=== PATIENT | female | born 1995 | race Two or more races ===

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

== ENCOUNTER 2017-02-18 05:55 | Emergency (ER) | payer MEDICAID ==
[~2017-02-18] VITALS: Ht 165.1 cm; Wt 57.2 kg
[2017-02-18 06:03] VITALS: BP 123/79
== END 2017-02-18 07:34 | disposition home or self-care (01) ==
LOC: ED 07:19
DX: H66.002 Acute suppurative otitis media without spontaneous rupture of ear drum, left ear (principal); J02.9 Acute pharyngitis, unspecified; J45.909 Unspecified asthma, uncomplicated
CPT/HCPCS: 99283

== ENCOUNTER 2020-09-15 17:47 | Emergency (ER) | payer MEDICAID ==
[~2020-09-15] VITALS: Ht 165.1 cm; Wt 72.3 kg
--- NOTE | 2020-09-15 18:20 | NUR ---
PT BROUGHT BACK FROM TRIAGE WITH CHIEF COMPLAINT OF N/V INTERMITTENT FOR ONE MONTH.
--- NOTE | 2020-09-15 18:46 | NUR ---
REPORT GIVEN TO ELENO MILLIGAN
--- NOTE | 2020-09-15 18:48 | NUR ---
BEDSIDE REPORT RECEIVED FROM JACK MILLIGAN
--- NOTE | 2020-09-15 18:54 | NUR ---
PT AMBULATORY WITH STEADY GAIT TO BATHROOM TO PROVIDE URINE SAMPLE. PT RETURNED TO ROOM, SITTING UPRIGHT ON TANYA MOYER, VSS. PT DENIES ANY ADDITIONAL NEEDS AT THIS TIME. CALL LIGHT AND PERSONAL BELONGINGS WITHIN REACH.
[2020-09-15 18:58] LABS: ALANINE AMINOTRANSFERASE 23 U/L (12-78); ALBUMIN 4.1 g/dL (3.4-5.0); ANION GAP 9 mmol/L (5-15); CALCIUM 9.3 mg/dL (8.5-10.1); CHLORIDE 108 mmol/L (98-107); CREATININE 0.74 mg/dL (0.55-1.02)
[2020-09-15 18:59] LABS: BASOPHILS % (AUTO) 0 % (0-1); EOSINOPHILS % (AUTO) 1 % (1-7); LYMPHOCYTES % (AUTO) 36 % (22-44); MEAN PLATELET VOLUME 8.8 fL (7.4-10.4); MONOCYTES % (AUTO) 8 % (2-9); NEUTROPHILS % (AUTO) 55 % (42-75); PLATELET COUNT 268 x10^3/uL (130-400); RED BLOOD COUNT 4.88 x10^6/uL (3.82-5.3); RED CELL DISTRIBUTION WIDTH 13.6 % (9.6-15.2)
[2020-09-15 19:01] LABS: MD NO
[2020-09-15 19:03] LABS: ALKALINE PHOSPHATASE 107 U/L (45-117); BILIRUBIN,TOTAL 0.3 mg/dL (0.2-1.0); TOTAL PROTEIN 7.9 g/dL (6.4-8.2)
[2020-09-15 19:22] LABS: MICROSCOPIC NOT IND
--- NOTE | 2020-09-15 20:03 | NUR ---
PT SITTING UPRIGHT ON GURMIR[place]LAVA, NADN, VSS. PT DENIES ANY ADDITIONAL NEEDS AT THIS TIME. CALL LIGHT AND PERSONAL BELONGINGS WITHIN REACH. AWAITING ERP
[2020-09-15 20:17] VITALS: BP 110/73
--- NOTE | 2020-09-15 20:53 | NUR ---
Patient given discharge instructions and they have confirmed that they understand the instructions. Patient ambulatory with steady gait.
== END 2020-09-15 20:55 | disposition home or self-care (01) ==
LOC: ED 20:35
DX: R11.2 Nausea with vomiting, unspecified (principal); R10.30 Lower abdominal pain, unspecified; J45.909 Unspecified asthma, uncomplicated; R94.31 Abnormal electrocardiogram [ECG] [EKG]
CPT/HCPCS: 36415; 80053; 81003; 84703; 85025; 93005; 99285

== ENCOUNTER 2021-02-07 08:01 | Emergency (ER) | payer MEDICAID ==
[~2021-02-07] VITALS: Ht 165.1 cm; Wt 65.0 kg
--- NOTE | 2021-02-07 08:57 | NUR ---
Pt is , 22 weeks . Pt c/o sharp chest pain that started last night. Denies all associated symptoms. Hx of "pulmonary nodule that resolved" but states that was painful when it was diagnosed. Denies having this pain previously. Connected to all monitors. NSR on the monitor.
--- NOTE | 2021-02-07 09:00 | NUR ---
This RN called L&D to assess FHT.
--- NOTE | 2021-02-07 09:11 | NUR ---
Med student at bedside. Awaiting orders.
[2021-02-07] MEDS ORDERED: ACETAMINOPHEN 500 MG TABLET PO ONE (09:30)
[2021-02-07] MEDS ORDERED: ACETAMINOPHEN 500 MG TABLET ONE (09:39)
[2021-02-07 09:51] LABS: BASOPHILS % (AUTO) 0 % (0-1); EOSINOPHILS % (AUTO) 1 % (1-7); LYMPHOCYTES % (AUTO) 21 % (22-44); MEAN CORPUSCULAR HEMOGLOBIN 30.8 pg (27.0-34.8); MEAN CORPUSCULAR HGB CONC 34.3 g/dL (32.4-35.8); MEAN PLATELET VOLUME 8.1 fL (7.4-10.4); MONOCYTES % (AUTO) 7 % (2-9); NEUTROPHILS % (AUTO) 70 % (42-75); PLATELET COUNT 213 x10^3/uL (130-400); RED CELL DISTRIBUTION WIDTH 14.3 % (9.6-15.2)
[2021-02-07 10:02] LABS: ALBUMIN 2.7 g/dL (3.4-5.0); ANION GAP 5 mmol/L (5-15); CALCIUM 8.4 mg/dL (8.5-10.1); CHLORIDE 113 mmol/L (98-107)
[2021-02-07 10:05] LABS: ALANINE AMINOTRANSFERASE 18 U/L (12-78); ALKALINE PHOSPHATASE 49 U/L (45-117); BILIRUBIN,TOTAL 0.3 mg/dL (0.2-1.0); CREATININE 0.43 mg/dL (0.55-1.02); TOTAL PROTEIN 6.3 g/dL (6.4-8.2)
--- NOTE | 2021-02-07 10:29 | NUR ---
Per pt, "someone came by to assess the heart beat, she said everything's good."
[2021-02-07 11:41] VITALS: BP 117/69
== END 2021-02-07 11:55 | disposition home or self-care (01) ==
LOC: ED 10:13
DX: O26.892 Other specified pregnancy related conditions, second trimester (principal); S29.011A Strain of muscle and tendon of front wall of thorax, initial encounter; Z3A.22 22 weeks gestation of pregnancy; X58.XXXA Exposure to other specified factors, initial encounter; Y93.89 Activity, other specified; Y92.89 Other specified places as the place of occurrence of the external cause; Y99.8 Other external cause status
CPT/HCPCS: 36415; 71045; 80053; 83690; 85025; 93005; 99285